=== PATIENT | female | born 1980 | race American Indian/Alaskan Native ===

== ENCOUNTER 2021-12-22 09:49 | Emergency (ER) | payer SELFPAY ==
[2021-12-22 10:16] VITALS: BP 149/91
== END 2021-12-23 05:00 | disposition left against medical advice (07) ==
LOC: ED 09:49
DX: R59.0 Localized enlarged lymph nodes (principal); Z53.21 Procedure and treatment not carried out due to patient leaving prior to being seen by health care provider